=== PATIENT | female | born 1970 | race Caucasian/White ===

== ENCOUNTER → 2018-01-22 | Outpatient (CLI) | payer OTHER | LOC: MC.RAD 07:14 | DX: Z12.31 Encounter for screening mammogram for malignant neoplasm of breast (principal) ==

== ENCOUNTER → 2020-09-07 | Outpatient (CLI) | payer OTHER | LOC: MC.RAD 10:02 | DX: Z12.31 Encounter for screening mammogram for malignant neoplasm of breast (principal); N64.89 Other specified disorders of breast ==

== ENCOUNTER → 2020-09-14 | Outpatient (CLI) | payer OTHER | LOC: MC.RAD 07:44 | DX: N64.89 Other specified disorders of breast (principal) ==

== ENCOUNTER → 2020-09-19 | Outpatient (CLI) | payer OTHER | LOC: COL.RAD 10:06 | DX: N95.8 Other specified menopausal and perimenopausal disorders (principal) ==

== ENCOUNTER → 2021-04-03 | Outpatient (CLI) | payer OTHER | LOC: COL.RAD 14:52 | DX: R79.1 Abnormal coagulation profile (principal); R06.00 Dyspnea, unspecified | CPT/HCPCS: Q9967 ==